=== PATIENT | female | born 1970 | race Caucasian/White ===

== ENCOUNTER → 2018-06-20 | Outpatient (CLI) | payer BC ==
--- NOTE | 2018-06-21 07:30 | Diagnostic Imaging Report ---
TECHNIQUE: Magnetic resonance imaging of the RIGHT KNEE was performed WITHOUT injected contrast. HISTORY: Pain, fall May 2018, peripheral tear of medial meniscus, reported meniscal repair July 2017 COMPARISON: None available. FINDINGS: LIGAMENTS AND TENDONS: ACL: Intact PCL: Intact Collateral ligaments: Intact Iliotibial band: Unremarkable Popliteal tendon: Intact Extensor mechanism: Intact JOINT: Menisci: Medial: Marked attenuation of the body with contour irregularity which extends to the adjacent posterior horn. Peripheral extrusion of the body remnants. Lateral: Intact Articular Cartilage: Medial Compartment: High-grade to full-thickness erosions of the weightbearing cartilage. Focal susceptibility artifact at the central mid weightbearing portion of the medial femoral condyle (series 4 image 23). Lateral Compartment: No focal defect. Patellofemoral Compartment: Low-grade diffuse erosion and fibrillation. Joint Fluid: Synovitis and small nonspecific joint effusion. BONES: The bone marrow signal is heterogeneous, compatible with red marrow conversion, no specific evidence of a focal bone marrow replacing abnormality. No acute fracture. Focal subchondral bone marrow edema at the peripheral weight-bearing portion of the medial femoral condyle greater than the adjacent medial tibial plateau. SOFT TISSUES: Mild anterior soft tissue edema. IMPRESSION: 1. Postsurgical versus degenerative changes of the medial meniscus, as detailed above. A subtle subacute tear superimposed on these chronic changes is possible given the provided history. 2. Medial compartment predominant moderate osteoarthrosis with associated reactive subchondral bone marrow edema. 3. Reactive synovitis and small nonspecific joint effusion. Signed by: Dr. Jonathan Higgins D.O., M.M.M. on 06/21/2018 7:27 AM
--- NOTE | 2018-06-21 08:20 | Diagnostic Imaging Report ---
TECHNIQUE: Magnetic resonance imaging of the LEFT KNEE was performed WITHOUT injected contrast. HISTORY: Pain, fall, peripheral tear of medial meniscus COMPARISON: None available. FINDINGS: LIGAMENTS AND TENDONS: ACL: Intact PCL: Intact Collateral ligaments: Intact Iliotibial band: Unremarkable Popliteal tendon: Intact Extensor mechanism: Intact JOINT: Menisci: Medial: Mild complex tearing and attenuation of the posterior horn and body. Mild peripheral extrusion of the remaining body. Lateral: Intact Articular Cartilage: Medial Compartment: High-grade erosion of the weightbearing cartilage. Lateral Compartment: No focal defect. Patellofemoral Compartment: Low-grade erosion. Joint Fluid: Mild synovitis and small nonspecific joint effusion. BONES: The bone marrow signal is heterogeneous, compatible with red marrow conversion, no specific evidence of a focal bone marrow replacing abnormality. No acute fracture. Mild subchondral bone marrow edema at the periphery of the medial femoral condyle. SOFT TISSUES: Mild nonspecific anterior soft tissue edema. IMPRESSION: 1. Mild medial compartment degenerative changes, including mild degenerative tearing of the medial meniscus. 2. Mild medial femoral condyle reactive subchondral bone marrow edema. 3. Reactive synovitis and associated small joint effusion. Signed by: Dr. Jonathan Higgins D.O., M.M.M. on 06/21/2018 8:17 AM
== END ==
LOC: MRI 15:03
PROVIDERS: ATTEND Specialist
DX: S83.221A Peripheral tear of medial meniscus, current injury, right knee, initial encounter (principal); S83.222A Peripheral tear of medial meniscus, current injury, left knee, initial encounter